=== PATIENT | female | born 1940 | race Caucasian/White ===

== ENCOUNTER 2017-08-06 08:20 | Emergency (ER) | payer MEDICARE ==
[~2017-08-06] VITALS: Ht 160 cm; Wt 83.9 kg
--- NOTE | 2017-08-06 08:30 | NUR ---
PRESENTS TO ER C/O FLU LIKE SYMPTOMS X 1 WEEK. PRESENTS WITH COUGH/CONGESTION. A/OX 4. BREATHING EVEN AND UNLABORED. NO SOB. VITALS STABLE. SAFETY AND COMFORT MEASURES IN PLACE. AWAITING MD ORDERS.
[2017-08-06] MEDS ORDERED: ALBUTEROL FS 2.5 MG/0.5 ML VIAL.NEB ONE (09:14)
[2017-08-06] MEDS ORDERED: GUAIFENESIN/D-METHORPHAN HB 5 ML UDC ONE (09:26)
[2017-08-06] MEDS ORDERED: ALBUTEROL FS 2.5 MG/0.5 ML VIAL.NEB NEB ONE (09:30)
[2017-08-06] MEDS ORDERED: GUAIFENESIN/D-METHORPHAN HB 5 ML UDC PO ONE (09:30)
[2017-08-06 11:08] VITALS: BP 142/76
--- NOTE | 2017-08-06 11:10 | NUR ---
Patient discharged to home in stable condition. Written and verbal after care instructions given. Patient verbalizes understanding of instruction.
== END 2017-08-06 11:09 | disposition home or self-care (01) ==
LOC: ER 08:26
DX: J20.9 Acute bronchitis, unspecified (principal); I10 Essential (primary) hypertension

== ENCOUNTER 2018-12-04 10:52 | Inpatient (IN) | payer BC, MEDICARE, OTHER ==
[~2018-12-04] VITALS: Ht 160 cm; Wt 80.7 kg
--- NOTE | 2018-12-04 11:14 | NUR ---
"Weird sensation on chest this am while watching TV in the morning lasted 15 sec went away but it came back while driving this time w/arm sensation". STATES FEELING SOME WEAKNESS AND LIGHTHEADEDNESS. DENIES PAIN, SOB, N/V. NO ACUTE DISTRESS NOTED. SKIN WARM TO TOUCH, DRY, INTACT. READY FOR EVAL.
[2018-12-04 11:18] LABS: BASOPHILS % (AUTO) 0.3 % (0.0-2.0); EOSINOPHILS % (AUTO) 1.4 % (0.0-6.0); HEMATOCRIT 38 % (33-45); HEMOGLOBIN 12.9 g/dL (11.5-14.8); LYMPHOCYTES # (AUTO) 3.6 /CMM (0.8-4.8); LYMPHOCYTES % (AUTO) 53.6 % (20.0-44.0); MEAN CORPUSCULAR HGB CONC 34 g/dl (31.0-36.0); MEAN CORPUSCULAR VOLUME 93 fL (82-100); MONOCYTES # (AUTO) 0.3 /CMM (0.1-1.30); MONOCYTES % (AUTO) 4.7 % (2.0-12.0); NEUTROPHILS # (AUTO) 2.7 /CMM (1.8-8.9); PLATELET COUNT (AUTO) 242 /CMM (150-450); RED BLOOD CELL COUNT(AUTO) 4.13 MIL/uL (4.0-5.2); WHITE BLOOD COUNT (AUTO) 6.7 K/uL (4.3-11.0)
[2018-12-04 11:25] LABS: CALCIUM, SERUM 8.8 mg/dL (8.5-10.1); CARBON DIOXIDE 33 mmol/L (21-32); CHLORIDE 106 mmol/L (98-107); CREATININE 0.6 mg/dL (0.6-1.3); GLUCOSE 99 mg/dL (74-106); POTASSIUM 4.5 mmol/L (3.5-5.1); SODIUM SERUM 142 mmol/L (136-145); UREA NITROGEN, BLOOD 19 mg/dL (7-18)
[2018-12-04 11:37] LABS: ALANINE AMINOTRANSFERASE 21 U/L (12-78); ALBUMIN 3.4 g/dL (3.4-5.0); ALKALINE PHOSPHATASE 86 U/L (46-116); ASPARTATE AMINOTRANSFERASE 13 U/L (15-37); B-TYPE NATRIURETIC PEPTIDE 49 PG/ML (0-125); BILIRUBIN,DIRECT 0.1 mg/dL (0.0-0.2); BILIRUBIN,TOTAL 0.3 mg/dL (0.2-1.0); TOTAL PROTEIN, SERUM 6.3 g/dL (6.4-8.2)
[2018-12-04] MEDS ORDERED: LABE100T5 PO (13:15)
--- NOTE | 2018-12-04 13:45 | NUR ---
REPORT GIVEN TO JOB FLORES FOR 308-2 T. PT ALREADY TRANSFERRED TO FLOOR.
[2018-12-04] MEDS ORDERED: ACETAMINOPHEN 325 MG TABLET PO PRN (14:00)
[2018-12-04] MEDS ORDERED: HYDROCODONE/APAP 5/325MG 1 EACH TABLET PO PRN (14:00)
[2018-12-04] MEDS ORDERED: Z GUARD REMEDY 2 OZ OINT TP PRN (14:00)
[2018-12-04] MEDS ORDERED: ONDANSETRON HCL/PF 4 MG/2 ML VIAL IVP PRN (14:00)
[2018-12-04] MEDS ORDERED: MAGNESIUM HYDROXIDE 30 ML UDC PO PRN (14:00)
[2018-12-04] MEDS ORDERED: ZOLPIDEM TARTRATE 5 MG TABLET PO PRN (14:00)
[2018-12-04 14:15] VITALS: BP 142/77
--- NOTE | 2018-12-04 14:37 | NUR ---
VISITING NURSESUPERVISOR GRAPHITE RECEIVED PATIENT FROM ER, AWAKE, ALERT X4, NO RESPIRATORY DISTRESS NOTED. PATIENT TOLERATING ROOM AIR. NO COMPLAINTS OF CHEST PAIN OR DIZZINESS. SECURITY [facility]PERATIONS [facility] OPERATOR IN PLACE, SHOWING SR. PATIENT HAS LEFT AC SL #20G, PATENT AND INTACT, NO REDNESS, NO INFILTRATION NOTED. SKIN DRY, WARM AND INTACT. PATIENT REFUSED PHOTOS TO BE TAKEN. PATIENT'S BELONGINGS ACCOUNTED FOR, REFUSED TO BE PLACED IN SAFE. ADMISSION ORDERS CARRIED OUT. BED ON LOW AND LOCKED POSITION. CALL LIGHT WITHIN REACH.
[2018-12-04 16:00] VITALS: BP 131/66
--- NOTE | 2018-12-04 18:46 | NUR ---
EVENT TECHNICIAN NOTES PATIENT AWAKE IN BED, ALERT AND ORIENTED X4, NO ACUTE DISTRESS NOTED. NO C/O PAIN AT THIS TIME. SKIN DRY AND WARM TO TOUCH. AM LABS ORDERED FOR TOMORROW PER MD ORDER. ECHO PRELIMINARY REPORT SHOWING EF OF 70% WITH NO STENOSIS, FINAL READING STILL PENDING. BED ON LOW AND LOCKED POSITION, CALL LIGHT WITHIN REACH. WILL ENDORSE TO ONCOMING NURSE.
--- NOTE | 2018-12-04 19:30 | NUR ---
MS/RN RECEIVE PATIENT AWAKE, ALERT, ORIENTED, COMFORTABLE, NO C/O PAIN, NO DISTRESS NOTED, CALL LIGHT IN REACH. WILL MONITOR.
[2018-12-04 20:04] VITALS: BP 127/72
[2018-12-05] VITALS: BP 133/69
--- NOTE | 2018-12-05 01:07 | NUR ---
TELE/RN PATIENT IS SLEEPING AT THIS TIME, AROUSABLE, APPEAR COMFORTABLE, NO DISTRESS NOTED, CALL LIGHT IN REACH. CPAP ON. WILL CONTINUE TO MONITOR.
[2018-12-05 04:00] VITALS: BP 123/72
--- NOTE | 2018-12-05 06:21 | NUR ---
MS/RN PATIENT IS AWAKE, ALERT, COMFORTABLE, NO C/O PAIN, NO CHANGE IN CONDITION. ALL NEEDS ATTENDED AT THIS TIME, WILL CONTINUE TO MONITOR.
[2018-12-05 06:32] LABS: BASOPHILS % (AUTO) 0.4 % (0.0-2.0); EOSINOPHILS % (AUTO) 2.2 % (0.0-6.0); HEMATOCRIT 38 % (33-45); HEMOGLOBIN 12.8 g/dL (11.5-14.8); LYMPHOCYTES # (AUTO) 3.1 /CMM (0.8-4.8); LYMPHOCYTES % (AUTO) 51.1 % (20.0-44.0); MEAN CORPUSCULAR HGB CONC 34 g/dl (31.0-36.0); MEAN CORPUSCULAR VOLUME 92 fL (82-100); MONOCYTES # (AUTO) 0.4 /CMM (0.1-1.30); MONOCYTES % (AUTO) 7.2 % (2.0-12.0); NEUTROPHILS # (AUTO) 2.4 /CMM (1.8-8.9); NEUTROPHILS % (AUTO) 39.1 % (43.0-81.0); PLATELET COUNT (AUTO) 232 /CMM (150-450); RED BLOOD CELL COUNT(AUTO) 4.14 MIL/uL (4.0-5.2); WHITE BLOOD COUNT (AUTO) 6.1 K/uL (4.3-11.0)
[2018-12-05 06:44] LABS: CHOLESTEROL 210 mg/dL (<200); HDL CHOLESTEROL 51 mg/dL (40-60); TRIGLYCERIDES 154 mg/dL (30-150)
[2018-12-05 06:45] LABS: CALCIUM, SERUM 8.8 mg/dL (8.5-10.1); CARBON DIOXIDE 30 mmol/L (21-32); CHLORIDE 106 mmol/L (98-107); CREATININE 0.6 mg/dL (0.6-1.3); GLUCOSE 93 mg/dL (74-106); MAGNESIUM 2.1 mg/dL (1.8-2.4); PHOSPHORUS 3.8 mg/dL (2.5-4.9); SODIUM SERUM 143 mmol/L (136-145); UREA NITROGEN, BLOOD 17 mg/dL (7-18)
[2018-12-05 06:54] LABS: LDL 121 mg/dL (0-99)
--- NOTE | 2018-12-05 07:19 | NUR ---
M/S RN NOTES PATIENT AWAKE IN BED, ALERT AND ORIENTED X4. PATIENT IN NO RESPIRATORY DISTRESS, NO C/O PAIN AT THIS TIME. PATIENT'S NEEDS ATTENDED. BED ON LOW AND LOCKED POSITION, CALL LIGHT WITHIN REACH. WILL CONTINUE TO MONITOR.
[2018-12-05 08:09] VITALS: BP 152/75
[2018-12-05] MEDS ORDERED: ASPIRIN 81 MG TAB.CHEW PO SCH (09:00)
[2018-12-05] MEDS ORDERED: ASPI-1152 PO (11:37)
--- NOTE | 2018-12-05 13:35 | NUR ---
M/S DISCHARGE NOTES PATIENT DISCHARGED HOME IN STABLE CONDITION, DENIES CHEST PAIN, NO DIZZINESS. AMBULATORY WITH STEADY GAIT. REVIEWED DISCHARGE INSTRUCTIONS AND VERBALIZE UNDERSTANDING. PATIENT ADVISED TO SEE HER OWN CITY ADMINISTRATOR FOR OUTPATIENT [facility] BECAUSE SHE REFUSED TO DO IT IN HOUSE. ALL BELONGINGS WITH PATIENT, DENIED ANYTHING MISSING. PATIENT ACCOMPANIED TO THE LOBBY. PATIENT LEFT IN CAR.
== END 2018-12-05 13:32 | disposition home or self-care (01) | DRG 303 ==
LOC: ER 10:52 → TELE 14:05 → MED 12-05 10:30
PROVIDERS: ADMIT Nurse Practitioner Acute Care; ATTEND Nurse Practitioner Acute Care
PROC: 5A09357 Assistance with Respiratory Ventilation, Less than 24 Consecutive Hours, Continuous Positive Airway Pressure (ICD-10-PCS; principal; 2018-12-04)
DX: I25.10 Atherosclerotic heart disease of native coronary artery without angina pectoris (principal); D68.59 Other primary thrombophilia; G47.33 Obstructive sleep apnea (adult) (pediatric); E66.9 Obesity, unspecified; Z68.31 Body mass index [BMI] 31.0-31.9, adult; E78.5 Hyperlipidemia, unspecified; I11.9 Hypertensive heart disease without heart failure; D72.820 Lymphocytosis (symptomatic)
CPT/HCPCS: 36415; 71045-TC; 80048-TC; 80061-TC; 80076-TC; 83735-TC; 83880; 84100-TC; 84484-TC; 85025-TC; 87081-TC; 93307-TC; 94760-TC; 94799-TC; G0378

== ENCOUNTER 2023-09-15 00:24 | Emergency (ER) | payer BC ==
[~2023-09-15] VITALS: Ht 160 cm; Wt 83.9 kg
[~2023-09-15 00:24] MED LIST: ASPI-1420 PO; LABE100T5 PO
[2023-09-15 02:38] VITALS: BP 134/66; TEMP 98; O2SAT 98
== END 2023-09-15 02:39 | disposition home or self-care (01) ==
LOC: ER 00:35
DX: S09.90XA Unspecified injury of head, initial encounter (principal); I10 Essential (primary) hypertension; Z90.710 Acquired absence of both cervix and uterus; Z88.8 Allergy status to other drugs, medicaments and biological substances; Z60.2 Problems related to living alone; W07.XXXA Fall from chair, initial encounter; Y93.89 Activity, other specified; Y92.89 Other specified places as the place of occurrence of the external cause; Y99.8 Other external cause status
CPT/HCPCS: 70450-TC

== ENCOUNTER 2025-02-12 19:38 | Emergency (ER) | payer BC ==
[~2025-02-12] VITALS: Ht 162.6 cm; Wt 68.0 kg
[2025-02-12 22:00] VITALS: BP 142/57; TEMP 98; O2SAT 97
== END 2025-02-12 22:01 | disposition home or self-care (01) ==
LOC: ER 19:42
DX: S09.8XXA Other specified injuries of head, initial encounter (principal); G47.30 Sleep apnea, unspecified; I10 Essential (primary) hypertension; Z79.01 Long term (current) use of anticoagulants; Z79.82 Long term (current) use of aspirin; Z79.899 Other long term (current) drug therapy; Z90.710 Acquired absence of both cervix and uterus; Z60.2 Problems related to living alone; W22.03XA Walked into furniture, initial encounter; Y93.89 Activity, other specified; Y92.89 Other specified places as the place of occurrence of the external cause; Y99.8 Other external cause status
CPT/HCPCS: 70450-TC; 72125-TC